=== PATIENT | male | born 1935 | race Caucasian/White ===

== ENCOUNTER 2017-02-27 15:31 | Emergency (ER) | payer MEDICARE ==
[~2017-02-27] VITALS: Ht 180.3 cm; Wt 77.3 kg
[2017-02-27] MEDS ORDERED: MONT10TA2 PO (15:51)
[2017-02-27] MEDS ORDERED: ZOCO20TA PO (15:51)
[2017-02-27] MEDS ORDERED: FLOM5CAP PO (15:51)
[2017-02-27] MEDS ORDERED: ASPI81TA85 PO (15:51)
[2017-02-27] MEDS ORDERED: LOSA100T5 PO (15:51)
[2017-02-27] MEDS ORDERED: OMEP20CA3 PO (15:51)
[2017-02-27] MEDS ORDERED: PROS5TAB PO (15:51)
--- NOTE | 2017-02-27 18:00 | REPUSA ---
CLINICAL HISTORY: Head injury. TECHNIQUE: Multiple axial CT images were obtained through the brain without IV contrast material. COMMENTS: There is normal configuration of sella turcica. There are no intra or extra-axial collections. There is no mass effect or midline shift. There is no evidence of hematoma formation. No hydrocephalus is p resent. The ventricles are symmetrical. No abnormal calcifications are present. There is diffuse age-appropriate cerebellar and cerebral atrophy with proportionally dilated ventricl es and cortical sulci. There are bilateral periventricular and subcortical white matter hypolucencies compatible with mild c hronic microvascular disease. Otherwise, no significant focal abnormalities are seen either in the posterior fossa or supratentoria l compartment. IMPRESSION: 1. Age-appropriate cerebellar and cerebral atrophy. 2. Mild chronic microvascular disease. 3. No evidence of acute intracranial pathology. Thank you for your kind referral of this patient.
[2017-02-27 18:36] VITALS: BP 163/71
--- NOTE | 2017-02-28 05:58 | REP ---
RIGHT FOOT, FOUR VIEWS: HISTORY: Pain. There are nondisplaced fractures of the distal second metacarpal and base of the fourth metacarpal. There is no dislocation. There is narrowing of the first metatarsophalangeal joint space with associated osteophytes formation. An osteophyte is present on the posterior calcaneus. Calcification is present superior to the anterior talus. This represents ligamentous or tendon calcification. IMPRESSION: Fractures of the second and fourth metatarsals. Signed by Oj Mills MD 02/28/2017 08:29 A
--- NOTE | 2017-02-28 05:59 | REP ---
RIGHT ANKLE, FOUR VIEWS: HISTORY: Pain. There is no acute fracture or dislocation. There is narrowing of the joint space. Osteophytes are present on the inferior and posterior calcaneus. A calcified density is present superior to the anterior talus. This represents ligamentous or tendon calcification. Soft tissue swelling is present. IMPRESSION: There is no acute fracture or dislocation. Signed by Oj Mills MD 02/28/2017 08:29 A
== END 2017-02-27 18:53 | disposition home or self-care (01) ==
LOC: M ED 15:31
DX: S09.90XA Unspecified injury of head, initial encounter (principal); S92.344A Nondisplaced fracture of fourth metatarsal bone, right foot, initial encounter for closed fracture; S92.324A Nondisplaced fracture of second metatarsal bone, right foot, initial encounter for closed fracture; W11.XXXA Fall on and from ladder, initial encounter; Y92.099 Unspecified place in other non-institutional residence as the place of occurrence of the external cause; Y93.9 Activity, unspecified; Y99.9 Unspecified external cause status; I10 Essential (primary) hypertension; N40.0 Benign prostatic hyperplasia without lower urinary tract symptoms; Z79.82 Long term (current) use of aspirin; Z79.899 Other long term (current) drug therapy; Z88.2 Allergy status to sulfonamides